=== PATIENT | female | born 1985 | race African-American/Black ===

== ENCOUNTER 2020-09-27 10:31 | Emergency (ER) | payer MEDICAID, OTHER ==
[~2020-09-27] VITALS: Ht 167.6 cm; Wt 122.9 kg
[2020-09-27] MEDS ORDERED: TDAP DIPH,PERTUSS,TET VAC/PF 0.5 ML DISP.SYRIN IM ONE (11:14)
--- NOTE | 2020-09-27 11:20 | NUR ---
Pt refused swab for COVID-19, notified and spoke with the pt.
[2020-09-27] MEDS: TDAP DIPH,PERTUSS,TET VAC/PF 0.5 ML DISP.SYRIN IM ONE (11:25)
--- NOTE | 2020-09-27 11:52 | NUR ---
Patient discharged to home in stable condition. Written and verbal after care instructions given. Patient verbalizes understanding of instructions. Stressed follow up or return to ER for worsening s/s.
[2020-09-27 11:53] VITALS: BP 128/71
== END 2020-09-27 11:53 | disposition home or self-care (01) ==
LOC: ER 10:31
DX: S61.211A Laceration without foreign body of left index finger without damage to nail, initial encounter (principal); W45.8XXA Other foreign body or object entering through skin, initial encounter; Y92.89 Other specified places as the place of occurrence of the external cause; R05 Cough; E66.9 Obesity, unspecified; Z68.41 Body mass index [BMI] 40.0-44.9, adult
CPT/HCPCS: 90715; A4217; A4663